=== PATIENT | male | born 1945 | race Caucasian/White ===

== ENCOUNTER → 2018-03-03 | Outpatient (REF) | payer MEDICARE ==
[~2018-03-03] MED LIST: ASPI-715 PO; ATOR-1 PO; CAR6.25 PO; DESV50TA9 PO; GOLYTE PO; MULT1TAB54 PO; NAPR220C12 PO; PSYL0.5241 PO
== END ==
LOC: ZZSENDIN 17:05
PROVIDERS: ATTEND Family Medicine
DX: R68.89 Other general symptoms and signs (principal)
CPT/HCPCS: 85651